=== PATIENT | female | born 1975 ===

== ENCOUNTER 2024-06-09 06:41 | Day surgery (SDC) | payer OTHER ==
[~2024-06-09 06:41] MED LIST: DEPAKOTE ER500 MG; KLONOPIN; MEGESTROL ACETA40 MG; METFORMIN HCL500 M3
== END 2024-06-09 12:07 | disposition home or self-care (01) ==
LOC: CIR.AMB 06:41
PROVIDERS: ATTEND Obstetrics & Gynecology
DX: N85.02 Endometrial intraepithelial neoplasia [EIN] (principal); Z53.09 Procedure and treatment not carried out because of other contraindication; G47.30 Sleep apnea, unspecified; J45.909 Unspecified asthma, uncomplicated

== ENCOUNTER 2024-10-06 06:52 | Day surgery (SDC) | payer OTHER ==
[2024-09-30 14:27] VITALS: BP 121/83
[~2024-10-06] VITALS: Ht 160 cm; Wt 120.2 kg
[~2024-10-06 06:52] MED LIST changes: +AMBIEN10 MG PO; +INVEGA SUS156 MG/1 M IM
[2024-10-06] MEDS ORDERED: POVIDONE-IODINE 118 ML BOTT TOP ONE (09:10)
== END 2024-10-06 13:10 | disposition home or self-care (01) ==
LOC: CIR.AMB 06:52
PROVIDERS: ATTEND Obstetrics & Gynecology
DX: D25.0 Submucous leiomyoma of uterus (principal); N84.0 Polyp of corpus uteri; N93.8 Other specified abnormal uterine and vaginal bleeding; Z91.013 Allergy to seafood; J45.909 Unspecified asthma, uncomplicated